=== PATIENT | female | born 1945 | race Caucasian/White ===

== ENCOUNTER 2017-07-08 05:27 | Inpatient (IN) | payer MEDICARE, SELFPAY ==
[2017-06-24 14:16] VITALS: BP 141/69; PULSE 86; RESP 17; TEMP 36.7; O2SAT 97; BMI 30.9
[2017-06-24 15:04] LABS: Absolute Lymphocyte Count 2.72 X10^3/ul (0.83-4.51); Absolute Neutrophil Count 5.9 X10^3/uL (2.0-7.7); Basophil# 0.03 X10^3/uL; Basophil% 0.3 % (0-1); Eosinophil# 0.13 X10^3/uL; Eosinophils% 1.4 % (0-5); Hemoglobin 14.4 g/dl (12.0-15.0); Lymphocyte # 2.72 X10^3/ul (4.0); Lymphocyte % 28.7 % (19-41); Mean Corp Hgb Conc 32.7 g/gl (32-36); Mean Corpuscular Hgb 30.4 pg (27.0-32.0); Mean Corpuscular Volume 92.8 fL (81-99); Mean Platelet Vol. 9.9 fl (6.2-12.0); Monocyte# 0.69 X10^3/uL; Monocyte% 7.3 % (0-10); Neutrophil % 62.2 % (47-70); Platelet Count 235 K/mm3 (150-450); RBC Distribution Width CV 13.6 % (11.6-14.6); RBC Distribution Width SD 46.2 fl (35.1-43.9); Red Blood Count 4.74 M/mm3 (4.2-5.4); White Blood Count 9.5 K/mm3 (4.4-11.0)
[2017-06-24 15:05] LABS: POSITIVE COUNT NO; POSITIVE DIFFERENTIAL NO; POSITIVE MORPHOLOGY NO
[2017-06-24 15:59] LABS: Anion Gap 7 (5-15); BUN 28 mg/dL (7-18); BUN/Creat Ratio 45.1 RATIO (10-20); Calcium,Total 8.8 mg/dL (8.5-10.1); Chloride 108 mmol/L (98-107); Creatinine, Serum 0.62 mg/dL (0.55-1.02); EST Glomerular Filtration Rate 100 mL/min (>60); Est Glom Filt Rate - Afr Amer 121 mL/min (>60); Glucose 88 mg/dL (70-110); Potassium 4.3 mmol/L (3.5-5.1); Sodium Level 140 mmol/L (136-145); Thyroid Stim Hormone (TSH) 0.01 uIU/mL (0.358-3.74)
--- NOTE | 2017-06-25 14:05 | HP.PCM_ITS ---
History and Physical DATE OF SERVICE: 07/08/2017 SCHEDULED PROCEDURE: Right total hip arthroplasty and left total hip arthroplasty HISTORY OF PRESENT ILLNESS: This is a 72-year-old female who is been having ongoing pain in bilateral hips for over 1 year. Patient states the right hip is worse than the left. Pain can reach as high as a 9 out of 10. Pain is constant, aching, and sharp. Pain is increased with going up and down stairs, walking any amount of distance. She has difficult time with activities of daily living including getting dressed , housework, shopping, and leisure activities. Patient states she has fallen as well as tripped and stumbled due to her bilateral hips. Patient has tried conservative measures consisting of rest, ice, heat, elevation with no relief in pain. Patient has had a previous corticosteroid injection into the lateral hip with minimal relief. She has tried oral medications consisting of hydrocodone, ibuprofen, and Mobic. There is been minimal relief. Patient denies previous surgery on bilateral hips. Denies any current chest pain, shortness of breath, fevers chills, or recent infections. We have obtained surgical clearance from patient's primary care physician Dr. Fisher. After failing conservative measures and discussing all treatment options with Dr. Alcantara, the patient would like to proceed with a bilateral total hip arthroplasty. REVIEW OF SYSTEMS: ROS: Const: Reports change in appetite and weight change, but denies anorexia, fever , hard of hearing and vision problems. CV: Denies chest pain, heart murmur, irregular heartbeat and peripheral vascular disease. Resp: Denies asthma, cough, pneumonia, sleep apnea, SOB, tuberculosis and wheezing. GI: Denies constipation, diarrhea, difficulty swallowing, heartburn, nausea, bloody stools and vomiting. : . (F Genital Sx) Urinary: denies incontinence. Musculo: Reports limp, but denies leg swelling, trouble walking and weakness. Skin: Reports history of shingles, but denies Raynaud's and tattoo. Neuro: Denies ambulatory dysfunction, dizziness, numbness/tingling and tremor. Psych: Reports anxiety, depression, insomnia and stress, but denies mental illness. Elliott/Lymph: Denies anemia, bleeding/bruising tendency and past transfusion. Reviewed, no changes. PAST MEDICAL HISTORY: PMH: Medical Problems: Thyroid Disease, Depression Accidents: None Surgical Hx: Tonsillectomy, Hysterectomy Anesthesia Complications: Over Reacted To The Opiates Assistive Devices: Glasses Reviewed, no changes. SOCIAL HISTORY: SH: Marital: .Occupation: Retired.Work Status: Retired.Hand Dominance: Left- handed. Personal Habits: Cigarette Use: Never Smoked Cigarettes.Alcohol: Occasionally.Drug Use: Denies Use.Enjoy Exercising: Exercises 1-3 X/Week. Reviewed, no changes. VITALS: Ht: 66.5 Wt: 195lb Wt k.452 BMI: 31.0 BP: 148/80 Pulse: 76 Resp: 16 T: 97.2 T: 36.2C ALLERGIES: Penicillins Morphine - Over Sensitive MEDICATIONS: Meloxicam 15 mg 1 by mouth every day, Vitamin D3 Ultra Strength 5000 Unit 2 capsules orally daily, Citalopram Hydrobromide 20 mg Take 1 Tablet Every Day, [place] Thyroid 30 mg 3po in the morning and 2 PO I the evening qday, Citalopram Hydrobromide 1 tab PO daily, Multivitamins 1 tab PO daily, Vitamin D3 1000 Unit 1 cap PO daily, Biotin 1 cap PO daily, Vitamin B1 1 tab PO daily, Evening Exline Oil 500 mg 1 cap PO daily, Fish Oil 1 cap PO daily, Cyclobenzaprine HCL 10 mg PRE-OP EXAM: General appearance:NORMAL Other: Eyes: Conjunctivae and lids: NORMAL Pupils: ERR Ears, Nose, Mouth, and Throat: NORMAL Other: Inspection of lips, teeth and gums: NORMAL Other: Neck: Examination of neck: no masses noted. Respiratory: Assessment of respiratory effort: NORMAL Other: Ausculation of lungs: clear to ausculation no wheeses, ronchi or rales. Cardiovascular: Ausculation of heart: regular rate and rhythem, no mummurs, gallops or rubs. Exam of carotid arteries: NORMAL Other: Gastrointestinal: Exam of abdomen: soft, nontender, nondistended bowel sounds present. Lymphatic: Palpation of nodes in neck: NORMAL Other: Palpation of nodes in Axillae: NORMAL Other: Neurological: see below Psychiatric: Orientation to time, place and person: NORMAL Other: Mood and affect: NORMAL Other: PHYSICAL EXAMINATION: Patient walks with an antalgic gait. Right hip has tenderness to palpation over the lateral aspect. Range of motion is 65? of flexion external rotation to 20? and internal rotation to 10? patient has increased pain with rotation in the right groin. Left hip reveals tenderness to palpation of the lateral hip. She has 70? of flexion, internal rotation to 5?, and external rotation to 15?. Pain is really produced with internal and external rotation. Sensations intact light touch IMAGING STUDIES: X-rays were obtained at [facility] [place] on June 24, 2017 which reveals severe osteoarthritis in bilateral hips with joint space narrowing subchondral sclerosis, osteophyte formation. There is severe joint space narrowing. No lytic or blastic lesions. No acute findings for fracture. IMPRESSION: 1. Severe bilateral hip osteoarthritis 2. Thyroid disease 3. Depression PLAN: Dr. Alcantara did discuss and review with the patient all treatment options including surgical versus nonsurgical. Patient wishes to proceed with above- stated procedure. Potential risks, benefits, and complications of this procedure were discussed in detail including but not limited to , infection , nerve and blood vessel damage, persistent pain, numbness, tingling, paresthesias, blood clot, pulmonary embolism, and requirement for further surgery. The patient expressed full understanding has no further questions for the doctor. Patient does agree to proceed with the above-stated procedure and has signed the surgery consent form. ___ I have re-examined the patient. There are no clinical changes since date of exam. ___ See progress notes for changes. ___ Dictated on admission Date: Time: Signature:
[2017-07-08] VITALS (10 sets, daily range): BP systolic 95–138; BP diastolic 44–73; PULSE 73–102; RESP 16–18; TEMP 35.8–36.8; O2SAT 95–100; BMI 30.9; BMI 30.7
[2017-07-08] MEDS: oxyCODONE HCl Cr 10 MG Tablet PO (06:00)
[2017-07-08] MEDS: Celecoxib 200 MG Capsule 400 MG PO (06:01)
[2017-07-08] MEDS: Acetaminophen 500 MG Tablet 1000 MG PO ×3 (06:01→21:38)
[2017-07-08] MEDS: Lactated Ringers 1,000 ML 999 ML IV (06:30)
--- NOTE | 2017-07-08 07:01 | RAD_ITS ---
STUDY: X-RAY - PELVIS AND RIGHT HIP REASON FOR EXAM: Female, 72 years old. Total hip replacement. TECHNIQUE: Radiological exam, hip, unilateral, with pelvis when performed; 2 or 3 views. COMPARISON: None. FINDINGS: Status post right total hip preplacement. There is good alignment. Postoperative soft tissue changes. Status post left total hip replacement. RAD/Hip Min 2 Views (Portable) IMPRESSION: Status post right total hip preplacement. There is good alignment. Status post left total hip replacement. There is good alignment. Electronically Signed: Jamaal Espinoza MD at 11:22 EST Tel [phone], Service support ,
--- NOTE | 2017-07-08 07:01 | RAD_ITS ---
STUDY: X-RAY - PELVIS AND LEFT HIP REASON FOR EXAM: Female, 72 years old. Status post left hip replacement. TECHNIQUE: Radiological exam, hip, unilateral, with pelvis when performed; 2 or 3 views. COMPARISON: None. FINDINGS: The patient is status post left total hip replacement. There is good alignment. Postoperative soft tissue changes. RAD/Hip Min 2 Views (Portable) IMPRESSION: Status post left total hip replacement. Electronically Signed: Jamaal Espinoza MD at 12:23 EST Tel [phone], Service support ,
[2017-07-08] MEDS: Clindamycin 600 MG/50 ML BAG 100 MG IV ×3 (07:17→19:36)
--- NOTE | 2017-07-08 07:42 | RAD_ITS ---
STUDY: X-RAY - PELVIS AND LEFT HIP REASON FOR EXAM: Female, 72 years old. Anterior hip replacement. TECHNIQUE: Radiological exam, hip, unilateral, with pelvis when performed; 2 or 3 views. COMPARISON: None. FINDINGS: Intraoperative fluoroscopic imaging provided for left anterior total hip replacement. RAD/Hip 1 view with Pelvis IMPRESSION: Intraoperative fluoroscopy provided for left anterior hip replacement. Electronically Signed: Jamaal Espinoza MD at 11:00 EST Tel [phone], Service support ,
--- NOTE | 2017-07-08 08:38 | RAD_ITS ---
STUDY: X-RAY - PELVIS AND RIGHT HIP REASON FOR EXAM: Female, 72 years old. Anterior hip replacement. TECHNIQUE: Radiological exam, hip, unilateral, with pelvis when performed; 2 or 3 views. COMPARISON: None. FINDINGS: Fluoroscopic imaging provided for right anterior hip replacement. There is good alignment. RAD/Hip 1 view with Pelvis IMPRESSION: Status post right total hip replacement. There is good alignment. Electronically Signed: Jamaal Espinoza MD at 10:14 EST Tel [phone], Service support ,
[2017-07-08] MEDS: Lactated Ringers 1,000 ML 125 ML IV ×2 (10:33→15:31)
[2017-07-08] MEDS: Scopolamine 1mg/72hr Patch 1 PATCH TD (10:33)
--- NOTE | 2017-07-08 11:55 | OP.PCM_ITS ---
Operative Report Date of Procedure: 07/08/17 Report of Operation Date of Procedure: 07/08/17 Pre-Operative Diagnosis: Bilateral primary hip osteoarthritis Post-Operative Diagnosis: Bilateral primary hip osteoarthritis Surgery/Procedure Performed:: 1. Left total hip replacement, direct anterior. 2. Right total hip replacement, direct anterior Description of Surgical Findings:: Stable hipS with equal leg lengths assistant softball coach: Lexie Miguel Type of Anesthesia:: Spinal Anesthesiologist: Edmond Jones Special Medications: 2 g Ancef, 1 g TXA at incision, 1 g TXA closure, 10 mg Decadron, joint cocktail (30 mL of 0.5% Ropivicaine, 1000 units of epinephrine, 30 mg of Toradol) Specimen's removed: Bony cuts bilaterally Estimated Blood Loss (mL): 200 ML Fluids Replaced: 1800 mL crystalloid Description of Procedure: Components used: Left 1. Accolade 2 Ramirez femoral stem size 7 127? 2. [place] trident acetabular shell size 52 mm 3. [place] X3 polyethylene E 4. Ramirez Biolox delta 36mm, -5mm femoral head Right 1. Accolade 2 Ramirez femoral stem size 6 127? 2. Ramirez trident acetabular shell size 52 mm 3. [place] X3 polyethylene E 4. [place] Biolox delta 36mm, 0mm femoral head Brief history operative indications: 72 yo F who failed conservative measures for their hip osteoarthritis. X-rays were consistent with osteoarthritis including joint space narrowing, osteophyte formation and subchondral cysts. Total hip replacement was discussed with the patient with risks and benefits including but not limited to blood loss, DVTs, PEs, neurovascular damage, dislocation, general risks of anesthesia including loss of life. Patient demonstrated an understanding medical clearance is obtained the patient was consented for surgery. Procedure: On the date of procedure the patient's B hip was marked in the preoperative area. Patient was then taken back to the operating room where anesthesia assumed control of the C-spine and airway and administered anesthetic. Patient was transferred to the operating table and placed in the supine position. The hips were placed at the break of the bed and a sacral bump was placed. The B lower extremity was then prepped out in a sterile fashion using chlorhexidine while the surgeon scrubbed. The PA was vital in the positioning of the patient. Upon reentering the room the B lower extremity was draped in the standard orthopedic fashion and the incision was marked. A timeout was called and everyone agreed upon the side, the site, the procedure be performed, antibody given, and patient's identity. Based on patient's most severe discomfort we elected to start on the left side. At this time incision was made on the left through skin, subcutaneous tissue, and fat down to fascia. The fascia was then incised and the TFL was retracted laterally. A retractor was placed on the lateral border of the femoral neck. Attention was directed to the inferior portion of the approach and all crossing vessels were identified and appropriately coagulated. A retractor was then placed on the medial portion of the femoral neck. The anterior capsule was then cleared of all soft tissue and then H shaped capsulotomy was made. The retractors were then placed inside the capsule. The femoral neck was identified and a cleanup cut was made. At this time a power corkscrew was used to remove the femoral head. Attention was then turned toward the acetabulum where the soft tissues were appropriately retracted and the acetabulum was sequentially reamed to 51 mm. A 52 mm cup was then selected and impacted into place. Acetabular liner was impacted into place and locking mechanism was verified. The position of the acetabular cup was then verified under live fluoroscopy. Attention was then turned to the femur. Soft tissue releases on the medial and lateral femoral neck were appropriately done, the leg was externally rotated and lateralized. A Fuchs retractor was placed medially and proximally to the greater trochanter this allowed appropriate visualization and exposure of the femoral canal. Rongeour was then used to remove excess lateral bone. A canal finder and entry broach were used to open the proximal canal. Once we verified we were down the femoral canal we subsequently broached up to a size 7 femur. The appropriate neck was placed in the previously selected head was trialed with a -5 mm neck. Traction was pulled and the hip was reduced with internal rotation. Once it was appropriately reduced and stability was checked. There was minimal shuck, equal leg lengths and appropriate stability with hyperextension and external rotation as well as with 90? flexion and internal rotation. Fluoroscopy was then also used to verify the position of the components and leg lengths using the contralateral side for comparison. The trial components were then dislocated the proximal femur was again exposed and the components were removed from the wound. The final components were verified and opened. The wound was copiously irrigated out with normal saline. The acetabulum was checked for any residual debris. The final components were placed and impacted. Traction and internal rotation were again used to reduce the hip. After adequate reduction the hip remained stable with appropriate leg lengths. The final components were once again checked with live fluoroscopy and were found to be satisfactory. The wound was then copiously irrigated with normal saline once more, and hemostasis was obtained. Closure was then done using #1 Vicryl runner to close the fascia. A 2-0 vicryl interuppted sutures were used to close the subcutaneous skin. A 3-0 Monocryl and Steri-Strips were used for final skin closure. A Silverlon dressing was placed. While my research study assistant was closing the contralateral side incision was made on the right through skin, subcutaneous tissue, and fat down to fascia. The fascia was then incised and the TFL was retracted laterally. A retractor was placed on the lateral border of the femoral neck. Attention was directed to the inferior portion of the approach and all crossing vessels were identified and appropriately coagulated. A retractor was then placed on the medial portion of the femoral neck. The anterior capsule was then cleared of all soft tissue and then H shaped capsulotomy was made. The retractors were then placed inside the capsule. The femoral neck was identified and a cleanup cut was made. At this time a power corkscrew was used to remove the femoral head. Attention was then turned toward the acetabulum where the soft tissues were appropriately retracted and the acetabulum was sequentially reamed to 51 mm. A 52 mm cup was then selected and impacted into place. Acetabular liner was impacted into place and locking mechanism was verified. The position of the acetabular cup was then verified under live fluoroscopy. Attention was then turned to the femur. Soft tissue releases on the medial and lateral femoral neck were appropriately done, the leg was externally rotated and lateralized. A Fuchs retractor was placed medially and proximally to the greater trochanter this allowed appropriate visualization and exposure of the femoral canal. Rongeour was then used to remove excess lateral bone. A canal finder and entry broach were used to open the proximal canal. Once we verified we were down the femoral canal we subsequently broached up to a size 6 femur. The appropriate neck was placed in the previously selected head was trialed with a 0 mm neck. Traction was pulled and the hip was reduced with internal rotation. Once it was appropriately reduced and stability was checked. There was minimal shuck, equal leg lengths and appropriate stability with hyperextension and external rotation as well as with 90? flexion and internal rotation. Fluoroscopy was then also used to verify the position of the components and leg lengths using the contralateral side for comparison. The trial components were then dislocated the proximal femur was again exposed and the components were removed from the wound. The final components were verified and opened. The wound was copiously irrigated out with normal saline. The acetabulum was checked for any residual debris. The final components were placed and impacted. Traction and internal rotation were again used to reduce the hip. After adequate reduction the hip remained stable with appropriate leg lengths. The final components were once again checked with live fluoroscopy and were found to be satisfactory. The wound was then copiously irrigated with normal saline once more, and hemostasis was obtained. Closure was then done using #1 Vicryl runner to close the fascia. A 2-0 vicryl interuppted sutures were used to close the subcutaneous skin. A 3-0 Monocryl and Steri-Strips were used for final skin closure. A Silverlon dressing was placed. Patient was awakened by anesthesia and transferred to the [facility]. Patient was then transferred to the PACU for recovery. Postoperative plan: Patient will get 24 hours postop antibiotics. Patient will get in-house physical therapy and will be weight-bear as tolerated. Patient will follow up in office in 2 weeks for a wound check and x-rays. Grafts/Implants Used: Ramirez Accolade 2 - Complications none - Admit VTE Documentation VTE Present on Admission: No VTE Mechan Device Prophylaxis: SCD's, Thigh High BANDAR Hose VTE Pharm Prophylaxis ordered?: Yes
[2017-07-08] MEDS: oxyCODONE 5 MG Tablet PO ×2 (12:18→21:39)
[2017-07-08] MEDS: Famotidine 20 MG Tablet PO (13:13)
[2017-07-08] MEDS: Citalopram 20 MG Tablet PO (13:14)
[2017-07-08] MEDS: Aspirin 325 MG Tablet PO (15:28)
[2017-07-08] MEDS: Ferrous Sulfate 325 MG Tablet PO (15:28)
[2017-07-08] MEDS: Folic Acid 1 MG Tablet PO (15:28)
[2017-07-08] MEDS: Ketorolac 15 MG/ML Vial IV (17:20)
[2017-07-08] MEDS: Senna/Docusate Sodium 1 Tablet 2 TABLET PO (21:38)
[2017-07-08] MEDS: Thyroid 60 MG Tablet PO (21:38)
[2017-07-09] MEDS: Clindamycin 600 MG/50 ML BAG 100 MG IV (00:17)
[2017-07-09 03:30] VITALS: BP 108/48; PULSE 88; RESP 18; TEMP 36.6; O2SAT 98
[2017-07-09] MEDS: oxyCODONE 5 MG Tablet PO ×5 (04:03→22:32)
[2017-07-09] MEDS: Acetaminophen 500 MG Tablet 1000 MG PO ×3 (06:09→22:30)
[2017-07-09 06:17] LABS: Hematocrit 33.3 % (37-47); Hemoglobin 10.8 g/dl (12.0-15.0); Mean Corp Hgb Conc 32.4 g/gl (32-36); Mean Corpuscular Hgb 30.4 pg (27.0-32.0); Mean Corpuscular Volume 93.8 fL (81-99); Mean Platelet Vol. 10.5 fl (6.2-12.0); Platelet Count 187 K/mm3 (150-450); RBC Distribution Width CV 13.5 % (11.6-14.6); RBC Distribution Width SD 44.4 fl (35.1-43.9); Red Blood Count 3.55 M/mm3 (4.2-5.4); White Blood Count 10.8 K/mm3 (4.4-11.0)
[2017-07-09 06:18] LABS: Scan Indicated on CBC? Y/N NO
[2017-07-09 06:24] LABS: Anion Gap 7 (5-15); BUN 17 mg/dL (7-18); Calcium,Total 7.9 mg/dL (8.5-10.1); Chloride 107 mmol/L (98-107); Creatinine, Serum 0.55 mg/dL (0.55-1.02); EST Glomerular Filtration Rate 115 mL/min (>60); Est Glom Filt Rate - Afr Amer 139 mL/min (>60); Glucose 119 mg/dL (70-110); Potassium 4.3 mmol/L (3.5-5.1); Sodium Level 141 mmol/L (136-145)
[2017-07-09] MEDS: 0.9% NaCl Peripheral Flush Adult/Peds IV (07:02)
[2017-07-09 07:47] VITALS: BP 108/54; PULSE 77; RESP 18; TEMP 36.8; O2SAT 98
[2017-07-09] MEDS: Folic Acid 1 MG Tablet PO ×2 (08:00→16:04)
[2017-07-09] MEDS: Aspirin 325 MG Tablet PO ×2 (08:00→16:04)
[2017-07-09] MEDS: Famotidine 20 MG Tablet PO (08:00)
[2017-07-09] MEDS: Citalopram 20 MG Tablet PO (08:00)
[2017-07-09] MEDS: Senna/Docusate Sodium 1 Tablet 2 TABLET PO ×2 (08:00→22:29)
[2017-07-09] MEDS: Multivitamins,Therapeutic Tablet 1 TABLET PO (08:00)
[2017-07-09] MEDS: Ferrous Sulfate 325 MG Tablet PO ×2 (08:00→16:04)
--- NOTE | 2017-07-09 10:33 | CASEMGMT ---
REMEDIOS MA Face to Face with patient for initial transition planning/care coordination assessment. REMEDIOS MA introduced self and role at [facility]. Patient lying in bed, alert and oriented. Patient willing to participate in assessment and is able to answer all questions appropriately. Care providers, pharmacy, and demographics verified. See link attached. Patient wishes to discharge home with outpatient therapy at [facility]. Pt states she has no further needs or concerns at this time. REMEDIOS MA called [facility] and requested order for therapy be sent to [facility]. CM to follow for discharge planning needs that may arise. Disposition Plan: Patient to discharge home with outpatient therapy, family support, and follow-up plans in place.
--- NOTE | 2017-07-09 11:35 | PN.ORTHO_ITS ---
Subjective: The patient was sitting in bed upon examination. Patient denies any chest pain , shortness of breath, dizziness, lightheadedness, nausea or vomiting, or calf pain. No adverse overnight events. Patient does complain of some pain in the right hip more than the left hip. She has undergone physical therapy. 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 We have discussed with the patient she is not able to do any transfers or lifting for 6 weeks postoperatively with her . Objective: Vital signs stable and afebrile. Patient is able to plantarflex and dorsiflex actively bilaterally Sensation is intact to light touch to saphenous, sural, superficial and deep peroneal, and tibial distribution bilaterally Bilateral dressings are clean dry and intact. Negative Homans bilaterally, negative signs and symptoms of DVT. - Physical Exam General: Alert, Oriented x3, Cooperative, No apparent distress Vital Signs Temp Pulse Resp BP Pulse Ox 98.2 F 77 18 108/54 L 98 07/09/17 07:47 07/09/17 07:47 07/09/17 07:47 07/09/17 07:47 07/09/17 07:47 Oxygen Delivery Method Room Air Weight: 87.543 kg Body Mass Index (BMI) 30.7 Intake and Output for Last 24 Hours 07/07/17 07/08/17 07/09/17 23:59 23:59 23:59 Intake Total 3512 / 3512 1628 / 1628 Output Total 600 / 600 600 / 600 Balance 2912 / 2912 1028 / 1028 Laboratory Tests Past 24 Hrs 07/09/17 07/09/17 05:36 05:36 WBC 10.8 RBC 3.55 L Hgb 10.8 L Hct 33.3 L MCV 93.8 MCH 30.4 MCHC 32.4 RDW 13.5 RDW Differential 44.4 H Plt Count 187 MPV 10.5 Sodium 141 Potassium 4.3 Chloride 107 Carbon Dioxide 27.0 Anion Gap 7 BUN 17 Creatinine 0.55 Estim Creat Clear Calc 46.20 Est GFR (MDRD) Af Amer 139 Est GFR (MDRD) Non-Af 115 BUN/Creatinine Ratio 31.0 H Glucose 119 H Calcium 7.9 L Assessment/Plan 1. S/P bilateral anterior total hip arthroplasty POD #1 2. Continue Pain Medications: Tylenol and OxyIR 3. DVT Prophylaxis: Aspirin 325 mg twice daily 4. PT/OT: Weightbearing as tolerated 5. H & H: 10.8/33.3, asymptomatic 6. Encouraged Incentive Spirometry 7. Disposition: Plan will be for discharge home tomorrow. I would like patient to get additional physical therapy while in the hospital. 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 Patient is aware we are going to have restrictions for her for the first 6 weeks with no transfers or lifting of her . She voiced understanding and agreement.
[2017-07-09 13:53] VITALS: BP 105/52; PULSE 75; RESP 18; TEMP 37.1; O2SAT 98
[2017-07-09 20:20] VITALS: BP 106/61; PULSE 79; RESP 18; TEMP 36.9; O2SAT 97
[2017-07-09] MEDS: Thyroid 60 MG Tablet PO (22:29)
[2017-07-10] VITALS (7 sets, daily range): BP systolic 91–128; BP diastolic 35–80; PULSE 75–91; RESP 16; TEMP 36.7–37.1; O2SAT 97–99
[2017-07-10] MEDS: Acetaminophen 500 MG Tablet 1000 MG PO (05:21)
[2017-07-10 07:10] LABS: Hematocrit 35.9 % (37-47); Hemoglobin 11.8 g/dl (12.0-15.0); Mean Corp Hgb Conc 32.9 g/gl (32-36); Mean Corpuscular Hgb 30.8 pg (27.0-32.0); Mean Corpuscular Volume 93.7 fL (81-99); Mean Platelet Vol. 10.7 fl (6.2-12.0); Platelet Count 210 K/mm3 (150-450); RBC Distribution Width CV 13.7 % (11.6-14.6); RBC Distribution Width SD 45.6 fl (35.1-43.9); Red Blood Count 3.83 M/mm3 (4.2-5.4); White Blood Count 10.4 K/mm3 (4.4-11.0)
--- NOTE | 2017-07-10 07:20 | PN.ORTHO_ITS ---
Subjective: The patient was sitting in bedside chair upon examination. Patient denies any chest pain, shortness of breath, lightheadedness, nausea or vomiting, or calf pain. Patient is complaining of dizziness when up moving. Her blood pressure has been low. Patient denies any chest pain or any previous cardiac history, she has no history of hypertension. Patient states she has had a history in the past of dizziness and almost passing out. Patient's chief complaint is thigh pain. No adverse overnight events. Case was discussed with Dr. Alcantara. Objective: Vital signs stable except patient has hypotension and afebrile. Patient is able to plantarflex and dorsiflex actively. Sensation is intact to light touch to saphenous, sural, superficial and deep peroneal, and tibial distribution. Dressing is clean dry and intact. Bilateral thighs are soft and supple, no ecchymosis. Negative Homans bilaterally, negative signs and symptoms of DVT. - Physical Exam General: Alert, Oriented x3, Cooperative, No apparent distress Vital Signs Temp Pulse Resp BP Pulse Ox 98.1 F 75 16 91/35 L 97 07/10/17 02:30 07/10/17 02:30 07/10/17 02:30 07/10/17 06:22 07/10/17 02:30 Oxygen Delivery Method Room Air Weight: 87.543 kg Body Mass Index (BMI) 30.7 Intake and Output for Last 24 Hours 07/08/1718 07/10/17 23:59 23:59 23:59 Intake Total 3512 / 3512 2028 / 2028 600 / 600 Output Total 600 / 600 600 / 600 Balance 2912 / 2912 1428 / 1428 600 / 600 Laboratory Tests Past 24 Hrs 07/10/17 06:18 WBC Pending RBC Pending Hgb Pending Hct Pending MCV Pending MCH Pending MCHC Pending RDW Pending RDW Differential Pending Plt Count Pending Assessment/Plan 1. S/P bilateral anterior total hip arthroplasty POD #2 2. Continue Pain Medications: Tylenol and OxyIR, minimize the use of narcotics at this time. 3. DVT Prophylaxis: Aspirin 325 mg twice daily 4. PT/OT: Weightbearing as tolerated 5. H & H: Currently 11.8/35.9 trending up, patient with dizziness when moving. 6. Encouraged Incentive Spirometry 7. Hypotension: Case was discussed with Dr. Hunter Alcantara, plan will be for 1 L bolus of LR. We will continue to monitor her blood pressure. Minimize use of oxycodone. We will also check blood glucose. 8. Disposition: Discussed with Dr. Alcantara, plan will be for possible discharge home this evening if patient's hypotension improves and is asymptomatic. We will minimize the use of narcotics at this time. Continue with Tylenol for pain control. Prescriptions will be attached to the chart. Patient will follow -up per postop instructions. If patient remains symptomatic we will keep her another night.
--- NOTE | 2017-07-10 07:28 | PCM.DC.THR ---
Discharge Diet: No Restrictions Discharge Activity: May Not Drive - while taking narcotic pain medications. May shower in (days): 1 - Turned dressing away from water Weight Bearing Status: Weight bearing as tolerated - With walker Additional Activity Instructions:: Wear elastic stockings for 2 weeks. DO NOT use alcohol with narcotic pain medication. DO NOT make important decisions while taking narcotic medication. If you have problems with taking your medication (rash, itching, nausea, etc.) call the office at once. Call your doctor if your incision/area has: Increased Pain/ Swelling, Increased Redness, Foul Smelling Discharge Call your doctor if you observe: Fever of 101 or Higher Remove Dressing in (days):: 3 - Okay to remove on July 13, 2017 Instructions: Hip Safety: Getting Into and Out of Bed, Hip Precautions, Hip Safety: Sitting, Total Hip Replacement, Understanding Hip Replacement, After Total Hip Replacement: Returning to Activity, After Hip Replacement: Home Safety, After Total Hip Replacement: Recovering at Home, Discharge Instructions for Total Hip Replacement Surgery, After Hip Replacement: Managing Your Pain, After Hip Replacement: Using Your Walker, After Hip Replacement: Your Exercise Program Chart Additional Instructions: Follow [facility] postop instructions Avoid herbals, supplements, vitamins for first 2 weeks postoperatively. May resume after 2 weeks. Allergies/Adverse Reactions: Allergies morphine Allergy (Verified 06/24/17 14:08) Other Penicillins [PCN] Allergy (Verified 06/24/17 14:08) Swelling Medications to take at Discharge Biotin 1 mg PO DAILY 06/24/17 Cholecalciferol (Vitamin D3) [Vitamin D3] 5,000 unit PO DAILY 06/24/17 Citalopram [Celexa] 20 mg PO DAILY 06/24/17 Cyclobenzaprine [Flexeril] 10 mg PO QHS 06/24/17 Evening [place] Oil 500 mg PO DAILY 06/24/17 Multivitamin [Multiple Vitamins] 1 each PO DAILY 06/24/17 Thyroid,Pork [[employer] Thyroid] 2 tab PO QHS 06/24/17 Thyroid,Pork [[employer] Thyroid] 3 tab PO DAILY 06/24/17 Acetaminophen [Tylenol] 1,000 mg PO Q8 #90 tab 07/10/17 Aspirin 325 mg PO BIDCM #30 tab 07/10/17 Famotidine [Pepcid] 20 mg PO DAILY #30 tab 07/10/17 Oxycodone [Oxyir] 5 mg PO Q6H PRN PRN 7 Days #56 tab 07/10/17 Senna/Docusate Sodium [Senokot-S] 2 tab PO BID #20 tab 07/10/17 The following prescriptions were given: Oxycodone [Oxyir] 5 mg PO Q6H PRN PRN 7 Days #56 tab PRN Reason: Mod-Severe Pain (-03/17) Acetaminophen [Tylenol] 1,000 mg PO Q8 #90 tab Famotidine [Pepcid] 20 mg PO DAILY #30 tab Aspirin 325 mg PO BIDCM #30 tab Senna/Docusate Sodium [Senokot-S] 2 tab PO BID #20 tab Primary Care Physician: Daquan Fisher DO [Primary Care Provider] - Please follow up with your Primary Care Physician in: schedule follow up with PCP 1 week Please Follow Up With: home health physical therapy Please Follow Up With: Hemal Mayorga PA-C When: 07/22/17 @ 10:00 am
--- NOTE | 2017-07-10 07:31 | DCINST_ITS ---
Discharge Diet: No Restrictions Discharge Activity: May Not Drive - while taking narcotic pain medications. May shower in (days): 1 - Turned dressing away from water Weight Bearing Status: Weight bearing as tolerated - With walker Additional Activity Instructions:: Wear elastic stockings for 2 weeks. DO NOT use alcohol with narcotic pain medication. DO NOT make important decisions while taking narcotic medication. If you have problems with taking your medication (rash, itching, nausea, etc.) call the office at once. Call your doctor if your incision/area has: Increased Pain/ Swelling, Increased Redness, Foul Smelling Discharge Call your doctor if you observe: Fever of 101 or Higher Remove Dressing in (days):: 3 - Okay to remove on July 13, 2017 Instructions: Hip Safety: Getting Into and Out of Bed, Hip Precautions, Hip Safety: Sitting, Total Hip Replacement, Understanding Hip Replacement, After Total Hip Replacement: Returning to Activity, After Hip Replacement: Home Safety , After Total Hip Replacement: Recovering at Home, Discharge Instructions for Total Hip Replacement Surgery, After Hip Replacement: Managing Your Pain, After Hip Replacement: Using Your Walker, After Hip Replacement: Your Exercise Program Chart Additional Instructions: Follow [facility] postop instructions Avoid herbals, supplements, vitamins for first 2 weeks postoperatively. May resume after 2 weeks. Allergies/Adverse Reactions: Allergies morphine Allergy (Verified 06/24/17 14:08) Other Penicillins [PCN] Allergy (Verified 06/24/17 14:08) Swelling Medications to take at Discharge Biotin 1 mg PO DAILY 06/24/17 Cholecalciferol (Vitamin D3) [Vitamin D3] 5,000 unit PO DAILY 06/24/17 Citalopram [Celexa] 20 mg PO DAILY 06/24/17 Cyclobenzaprine [Flexeril] 10 mg PO QHS 06/24/17 Evening [place] Oil 500 mg PO DAILY 06/24/17 Multivitamin [Multiple Vitamins] 1 each PO DAILY 06/24/17 Thyroid,Pork [[place] Thyroid] 2 tab PO QHS 06/24/17 Thyroid,Pork [[place] Thyroid] 3 tab PO DAILY 06/24/17 Acetaminophen [Tylenol] 1,000 mg PO Q8 #90 tab 07/10/17 Aspirin 325 mg PO BIDCM #30 tab 07/10/17 Famotidine [Pepcid] 20 mg PO DAILY #30 tab 07/10/17 Oxycodone [Oxyir] 5 mg PO Q6H PRN PRN 7 Days #56 tab 07/10/17 Senna/Docusate Sodium [Senokot-S] 2 tab PO BID #20 tab 07/10/17 The following prescriptions were given: Oxycodone [Oxyir] 5 mg PO Q6H PRN PRN 7 Days #56 tab PRN Reason: Mod-Severe Pain (-03/17) Acetaminophen [Tylenol] 1,000 mg PO Q8 #90 tab Famotidine [Pepcid] 20 mg PO DAILY #30 tab Aspirin 325 mg PO BIDCM #30 tab Senna/Docusate Sodium [Senokot-S] 2 tab PO BID #20 tab Primary Care Physician: Daquan Fisher DO [Primary Care Provider] - Please follow up with your Primary Care Physician in: schedule follow up with PCP 1 week Please Follow Up With: home health physical therapy Please Follow Up With: Hemal Mayorga PA-C When: 07/22/17 @ 10:00 am
[2017-07-10] MEDS: Ferrous Sulfate 325 MG Tablet PO (07:32)
[2017-07-10] MEDS: Aspirin 325 MG Tablet PO (07:32)
[2017-07-10 07:33] LABS: Scan Indicated on CBC? Y/N NO
[2017-07-10] MEDS: Multivitamins,Therapeutic Tablet 1 TABLET PO (07:33)
[2017-07-10] MEDS: Citalopram 20 MG Tablet PO (07:33)
[2017-07-10] MEDS: Senna/Docusate Sodium 1 Tablet 2 TABLET PO (07:33)
[2017-07-10] MEDS: Famotidine 20 MG Tablet PO (07:33)
[2017-07-10] MEDS: Folic Acid 1 MG Tablet PO (07:33)
[2017-07-10] MEDS: Lactated Ringers 1,000 ML 500 ML IV (07:43)
[2017-07-10 07:46] LABS: Bedside Glucose 137 mg/dL (70-110)
[2017-07-10] MEDS: oxyCODONE 5 MG Tablet PO (11:26)
== END 2017-07-10 15:00 | disposition home or self-care (01) | DRG 462 ==
LOC: ACINP 05:28 → MS3 08:44
PROVIDERS: Anesthesiology; Admitting Provider Specialist; Family Provider Family Medicine; PCP Family Medicine; Visit Provider Specialist
PROC: 0SRB04A Replacement of Left Hip Joint with Ceramic on Polyethylene Synthetic Substitute, Uncemented, Open Approach (ICD-10-PCS; CPT 27284; principal; 2017-07-08 06:50)
DX: M16.0 Bilateral primary osteoarthritis of hip (principal); I95.9 Hypotension, unspecified; Z23 Encounter for immunization; E07.9 Disorder of thyroid, unspecified; F32.9 Major depressive disorder, single episode, unspecified
CPT/HCPCS: 36415; 73501; 73502; 76000; 80048; 82962; 84443; 85025; 85027; 87081; 97110; 97116; 97162; 97165; 97530; 97535; 99251; J7120; 90686; A4216; G0463

== ENCOUNTER 2017-08-07 10:00 | Outpatient (RCR) | payer MEDICARE, SELFPAY ==
[2017-07-10 10:19] VITALS: BP 117/56
[2017-07-10 11:29] VITALS: BP 128/55
[2017-07-10 11:30] VITALS: BP 101/49; BP 128/55; BP 128/70
--- NOTE | 2017-07-17 12:02 | HP.PTEVAL_ITS ---
Patient's Visit Information ANAI Ocampo OHL is a 72 year old F referred to Physical Therapy by MD RIMA Messer with a diagnosis of Bilateral THR. Date of Evaluation: 07/17/17 Physical Therapist: Callie Barrera - Visit Plan Frequency: 3x /Week Duration: 3 Weeks Plan: Bilateral THR 07/08/17. Focus on LE strength and functional mobility. - Subjective Subjective: Bilateral Hip Replacement 07/08/[address] Alcantara- stayed an extra day due to blood pressure issues. Came straight home- lives on single story home- one little step to get in without any issues. Fully I before surgery. Caregiver for . Bone on bone in both hips and was very painful. When she sits and lays down she has no pain. Worst: 7/10 when she gets up in the AM. Sleep: disturbed- sleeps in a reclyner. Was told not to roll over onto her hips. Goes back to [facility] on Jul 22, 2017. Pain is now in the hips itself- No radiating pain. No N/T in the LE. Anterior approach both ways. PMHx/Meds: no change since leaving the hospital. Is still taking the pain medication. - Objective Posture: FH, RS. Gait: slightly antalgic- isaura is slow- ambulate into clinic with rollator but was able to ambulate safely with no AD or at the least a cane. Stairs: asc/desc 8 recip with 2 HR. HR/TR: able. Balance: 5 sec each LE without UE A. ROM: WFL. Strength: Ankle: 5/5, Knee: 5/5, Hip left- 4-/ 5 and right- 4/5 - Goals Goal 1:: Patient will be I with HEP and progression Goal Time Frame: 4-6 Weeks Goal 2:: Patient will ambulate >300 feet with a normalized gait pattern and LRD Goal Time Frame: 4-6 Weeks Goal 3:: Patient will demo 4+/5 strength in LE where deficit to ease ADL's. Goal Time Frame: 4-6 Weeks - Rehabilitation Potential Physical Therapy Diagnosis: Patient presents with hypomobility- she is s/p bilateral THR- she has decreased strength and functional mobility. Rehabilitation Potential: Fair - Anticipated Interventions Patient/Client Instruction: Educate patient on: Benefits of Fitness Program For the Purpose of:: To improve performance and independence with ADL's Therapeutic Exercise to Include: Strength training, Endurance training, Coordination, Body mechanics, Postural training, Flexibilty training, Dynamic Lumbar Stabilization For the Purpose of:: To improve muscle performance and motor function TENS: Yes Cryotherapy (ice pack, ice massage): Yes Thermo therapy (hot pack): Yes Ultrasound (thermal/non thermal): No For the Purpose of:: To decrease pain Thank you for the opportunity to evaluate your patient. For Medicare and Medicare HMO plans, please review the plan of care and approve it. It will need to be FAXED BACK to us at [phone] for Medicare purposes. Please let me know if there are questions or concerns regarding this plan of care. Physician Signature: Date:
--- NOTE | 2017-08-07 10:41 | HP.PTDCSUM_ITS ---
HP - PT D/C Summary It has been my pleasure to treat ANAI Ocampo OHL under orders from Dick Alcantara MD , for the diagnosis of Bilateral THR for a total of 5 visit(s). Discharge Date: Please see the following information for a summary of their discharge status. - Subjective Subjective: Patient reports that she pays for PT the next day- Thinks that she may have shingles and the MD put her on meds and thats why she has missed a few appts. She has significant muscle soreness but can relieve it by foam rolling. Goes back to MD on the . Uses the cane due to feeling more stable and less limping. No pain except for muscle soreness. Slept in bed all night last night. - Pain Bilateral Hip Pain Intensity (Out of 10): 0 Right Knee Pain Intensity (Out of 10): 3 - Objective Objective/Function: Posture: good. Gait: no deviation with straight cane. Stairs:asc/desc 8 stairs recip. ROM: WFL. Strength: 5/5 throughout. SLS: 10 sec then UE A - Goals Goal 1:: Patient will be I with HEP and progression Goal Progress: Goal Met Goal 2:: Patient will ambulate >300 feet with a normalized gait pattern and LRD Goal Progress: Goal Met Goal 3:: Patient will demo 4+/5 strength in LE where deficit to ease ADL's. Goal Progress: Goal Met - Plan Plan: Discharge- pt feels confident to continue with normal ADL's and HEP - D/C Information If there are questions or concerns regarding this patient's physical therapy, please feel free to call me at [phone]. Thank you for the referral of this patient. Sincerely, Callie Barrera
== END 2017-08-07 19:00 | disposition home or self-care (01) ==
LOC: PT 10:00
PROVIDERS: Family Provider Family Medicine; PCP Family Medicine; Visit Provider Specialist
DX: Z96.643 Presence of artificial hip joint, bilateral (principal); Z47.1 Aftercare following joint replacement surgery
CPT/HCPCS: 97110; 97161; 97530

== ENCOUNTER → 2017-11-03 14:09 | Outpatient (CLI) | payer MEDICARE, SELFPAY ==
--- NOTE | 2017-11-03 13:32 | LES_PTH ---
PATIENT: ANAI KING LOC: [facility] U#:[id number] AGE/SX: 79/F ROOM: RE11/03/[address]: Dr. Daquan Fisher, : 1945 BED: DIS: SPEC #: [id number] RECD: 11/03/17 15:34 STATUS: PAUL NATALEE #: [id number] JOSS: 11/03/17 13:[address]: Daquan Fisher DEPT: SURGICAL PATHOLOGY RECD BY: Deven Méndez Tissues: A - Skin of upper extremity and shoulder B - Skin of buttock, NOS Procedures: Special Stain Group I Surgery Specimen Level IV GMS Stain (control) HEADER OPERATION: Punch biopsy x3, cryotherapy PRE-OP DIAGNOSIS: Atypical lesion TISSUE SUBMITTED: A ? Left shoulder, B ? Right buttock MICROSCOPIC DIAGNOSIS A. Left shoulder, punch biopsy: Skin with underlying tissue with focal ulceration and reactive changes. Dermal perivascular chronic inflammation. Negative for malignancy. Special stain for fungi is negative for organisms; matched control is appropriate. B. Right buttock lesion, biopsy: Skin with underlying tissue with hyperkeratosis, vascular ectasia and dermal chronic inflammation. Negative for malignancy. ADITHYA:karen 11/05/17 MICROSCOPIC DESCRIPTION Slides are reviewed. GROSS DESCRIPTION A - Received in fixative is one container labeled with the patient's name and designated left shoulder. The specimen consists of a punch biopsy of rizvi-brown skin measuring 0.2 cm in diameter and 0.2 cm in length. The specimen is totally submitted in one cassette. B - Received in fixative is one container labeled with the patient's name and designated right buttock. The specimen consists of a punch biopsy of rizvi-white to brown skin measuring 0.3 cm in diameter and 0.3 cm in length. The specimen is totally submitted in one cassette. / ADITHYA:akren 11/04/17 TC:3 CPT: 18854 x2, [id number]
== END ==
PROVIDERS: Family Provider Family Medicine; PCP Family Medicine; Visit Provider Family Medicine
DX: L98.9 Disorder of the skin and subcutaneous tissue, unspecified (principal)
CPT/HCPCS: 88305; 88312

== ENCOUNTER → 2019-12-22 12:02 | Outpatient (CLI) | payer MEDICARE, SELFPAY ==
--- NOTE | 2019-12-22 12:04 | BI_ITS ---
MAMMOGRAPHY - BILATERAL SCREENING REASON FOR EXAM: Female, 74 years old. Routine annual screening examination. PERTINENT HISTORY: Daughter with breast cancer. TECHNIQUE: Digital bilateral breast earl (3D mammographic acquisition) in the CC and MLO projections. 2-D mediolateral oblique (MLO) and craniocaudad (CC) views of both breasts were obtained. CAD: Full Field Digital Mammography with Computer Added Detection was performed. COMPARISON: Comparison is made with prior study dated March 24, 2017 and November 18, 2013. FINDINGS: Breast Composition: There are scattered areas of fibroglandular density. There are no dominant masses or suspicious calcifications. Stable small benign appearing bilateral axillary lymph nodes. No other significant abnormalities are identified. There has been no significant change since the prior study. BI/SCREEN MAMM (CAD) W/EARL BILAT IMPRESSION: Stable bilateral screening mammogram. Yearly follow-up mammogram recommended. (A) ASSESSMENT CATEGORY: BIRADS Category 2: Benign. A letter regarding these results will be sent to the patient by the facility within 30 days. Approximately 10% of breast cancers are not detected by mammography. A normal mammogram should not delay biopsy of a clinically suspicious abnormality. [id number] Electronically Signed: Jamaal Espinoza, at 13:15 EDT , Service support ,
== END ==
PROVIDERS: PCP Family Medicine; Referring Provider Family Medicine; Visit Provider Family Medicine
DX: Z12.31 Encounter for screening mammogram for malignant neoplasm of breast (principal); Z80.3 Family history of malignant neoplasm of breast
CPT/HCPCS: 77063; 77067

== ENCOUNTER → 2020-04-20 08:32 | Outpatient (CLI) | payer MEDICARE, SELFPAY ==
[2020-04-20 12:55] LABS: Absolute Lymphocyte Count 2.23 X10^3/uL (0.83-4.51); Absolute Neutrophil Count 3.6 X10^3/uL (2.0-7.7); Basophil# 0.04 X10^3/uL; Basophil% 0.6 % (0-1); Eosinophil# 0.14 X10^3/uL; Eosinophils% 2.1 % (0-5); Hematocrit 47.7 % (37-47); Hemoglobin 15.4 g/dL (12.0-15.0); Lymphocyte # 2.23 X10^3/ul (4.0); Lymphocyte % 33.8 % (19-41); Mean Corp Hgb Conc 32.3 g/dL (32-36); Mean Corpuscular Hgb 30.4 pg (27.0-32.0); Mean Corpuscular Volume 94.3 fL (81-99); Monocyte# 0.55 X10^3/uL; Monocyte% 8.3 % (0-10); NRBC Flagged by Analyzer 0 % (0-5); Neutrophil # 3.61 X10^3/uL (2.7-7.7); Neutrophil % 54.9 % (47-70); Platelet Count 272 K/mm3 (150-450); RBC Distribution Width CV 13.6 % (11.6-14.6); RBC Distribution Width SD 47.3 fl (35.1-43.9); Red Blood Count 5.06 M/mm3 (4.2-5.4); White Blood Count 6.6 K/mm3 (4.4-11.0)
[2020-04-20 13:21] LABS: T4 Free Direct 0.75 ng/dL (0.76-1.46); Thyroid Stim Hormone (TSH) 1.38 uIU/mL (0.358-3.74)
== END ==
PROVIDERS: PCP Family Medicine; Visit Provider Family Medicine
DX: E03.9 Hypothyroidism, unspecified (principal); R23.2 Flushing
CPT/HCPCS: 36415; 84439; 84443; 85025

== ENCOUNTER → 2022-04-01 | Outpatient (CLI) | payer MEDICARE, SELFPAY ==
--- NOTE | 2022-04-01 08:43 | AAVD_ITS ---
Reason For Study: Sscreening Aorta Measurements Aorta Doppler Measurements Proximal aorta measures2.0 X 1.96cm. in cross- Peak systolic flow velocities within the proximal sectional axis. aorta measure 95.9 cm/sec. Proximal aorta measures1.96cm. in longitudinal Peak systolic flow velocities within the mid aorta axis. measure 101.3 cm/sec. Mid aorta measures1.49 X 1.56cm. in cross- Peak systolic flow velocities within the distal sectional axis. aorta measure 94.2 cm/sec. Mid aorta measures1.49cm. in longitudinal axis. Distal aorta measures1.36 X 1.64cm. in cross- sectional axis. Distal aorta measures1.42cm. in longitudinal axis. Left Iliac Artery Left iliac artery measures 1.13 X 1.02 cm. in the cross-sectional axis. Left iliac artery measures 1.04 cm. in the longitudinal axis. Peak systolic velocity in the left iliac artery measures 157.8 cm/sec. Right Iliac Artery Right iliac artery measures 1.03 X 1.08 cm. in the cross-sectional axis. Right iliac artery measures 1.04 cm. in the longitudinal axis. Peak systolic velocity in the right iliac artery measures 113.9 cm/sec. Procedure Aorta IVC Iliac vasculature or bypass grafts 51089. The exam was diagnostic. Exam performed in department. VL/Abd Aortic/IVC Duplex scan Interpretation Summary The dimensions of the intra-abdominal aorta are normal, without evidence of ane urysmal dilatation. The iliac arteries also appear normal in caliber bilaterally. The intra-abdomin al aorta and iliac arteries appear patent segmentally, demonstrating normal pulsatile arterial aidan w at all levels. Ordering Physician: Daquan Fisher Performed By: Blake Ralph RVT
--- NOTE | 2022-04-01 09:30 | BI_ITS ---
MAMMOGRAPHY - BILATERAL SCREENING REASON FOR EXAM: Female, 76 years old. Routine annual screening examination. PERTINENT HISTORY: Daughter with breast cancer. TECHNIQUE: Digital bilateral breast earl (3D mammographic acquisition) in the CC and MLO projections. 2-D mediolateral oblique (MLO) and craniocaudad (CC) views of both breasts were obtained. CAD: Full Field Digital Mammography with Computer Added Detection was performed. COMPARISON: Comparison is made with prior study dated 12/22/2019 and 03/24/2017. FINDINGS: Breast Composition: The breasts are heterogeneously dense, which may obscure small masses. There are no dominant masses or suspicious calcifications. Stable small benign-appearing bilateral axillary lymph nodes. No other significant abnormalities are identified. There has been no significant change since the prior study. BI/SCRN MAMM (CAD)W/EARL BILAT IMPRESSION: Stable bilateral screening mammogram. Yearly follow-up mammogram recommended. (A) ASSESSMENT CATEGORY: BIRADS Category 2: Benign. A letter regarding these results will be sent to the patient by the facility within 30 days. Approximately 10% of breast cancers are not detected by mammography. A normal mammogram should not delay biopsy of a clinically suspicious abnormality. [id number] Electronically Signed: Jamaal Espinoza MD at 10:32 EDT ,
== END | disposition home or self-care (01) ==
LOC: CVS 08:34
PROVIDERS: PCP Family Medicine; Referring Provider Family Medicine; Visit Provider Family Medicine
DX: Z13.6 Encounter for screening for cardiovascular disorders (principal); Z87.891 Personal history of nicotine dependence; Z12.31 Encounter for screening mammogram for malignant neoplasm of breast; Z80.3 Family history of malignant neoplasm of breast; Z82.49 Family history of ischemic heart disease and other diseases of the circulatory system
CPT/HCPCS: 77063; 77067; 93978

== ENCOUNTER → 2023-05-15 | Outpatient (CLI) | payer MEDICARE, SELFPAY ==
--- NOTE | 2023-05-15 13:29 | BI_ITS ---
MAMMOGRAPHY - BILATERAL SCREENING REASON FOR EXAM: Female, 77 years old. Routine annual screening examination. PERTINENT HISTORY: Daughter with breast cancer. TECHNIQUE: Digital bilateral breast earl (3D mammographic acquisition) in the CC and MLO projections. 2-D mediolateral oblique (MLO) and craniocaudad (CC) views of both breasts were obtained. CAD: Full Field Digital Mammography with Computer Added Detection was performed. COMPARISON: Comparison is made with prior study April 01, 2022 and December 22, 2019. FINDINGS: Breast Composition: The breasts are heterogeneously dense, which may obscure small masses. There are no dominant masses or suspicious calcifications. No other significant abnormalities are identified. There has been no significant change since the prior study. BI/SCRN MAMM (CAD)W/EARL BILAT IMPRESSION: Stable bilateral screening mammogram. Yearly follow-up mammogram recommended. (A) ASSESSMENT CATEGORY: BIRADS Category 1: Negative. A letter regarding these results will be sent to the patient by the facility within 30 days. Approximately 10% of breast cancers are not detected by mammography. A normal mammogram should not delay biopsy of a clinically suspicious abnormality. [id number] Electronically Signed: Jamaal Espinoza MD at 14:33 EST ,
== END | disposition home or self-care (01) ==
LOC: OPBI 13:26
PROVIDERS: PCP Family Medicine; Referring Provider Family Medicine; Visit Provider Family Medicine
DX: Z12.31 Encounter for screening mammogram for malignant neoplasm of breast (principal)
CPT/HCPCS: 77063; 77067

== ENCOUNTER → 2023-06-19 | Outpatient (CLI) | payer MEDICARE, SELFPAY ==
[2023-06-19 17:36] LABS: Absolute Lymphocyte Count 4.11 X10^3/uL (0.83-4.51); Absolute Neutrophil Count 3.8 X10^3/uL (2.0-7.7); Basophil# 0.05 X10^3/uL; Basophil% 0.6 % (0-1); Eosinophils% 2.2 % (0-5); Hematocrit 43.5 % (37-47); Hemoglobin 14.4 g/dL (12.0-15.0); Lymphocyte # 4.11 X10^3/ul (0.83-4.51); Mean Corp Hgb Conc 33.1 g/dL (32-36); Mean Corpuscular Hgb 30.6 pg (27.0-32.0); Mean Corpuscular Volume 92.4 fL (81-99); Mean Platelet Vol. 10.5 fl (6.2-12.0); Monocyte# 0.72 X10^3/uL; Monocyte% 8.1 % (0-10); NRBC Flagged by Analyzer 0 % (0-5); Neutrophil # 3.83 X10^3/uL (2.7-7.7); Neutrophil % 42.9 % (47-70); Platelet Count 239 K/mm3 (150-450); RBC Distribution Width CV 13.9 % (11.6-14.6); RBC Distribution Width SD 47.4 fl (35.1-43.9); Red Blood Count 4.71 M/mm3 (4.2-5.4); White Blood Count 8.9 K/mm3 (4.4-11.0)
[2023-06-19 18:22] LABS: AST(SGOT) 26 U/L (15-37); Alanine Aminotransfer ALT/SGPT 31 U/L (13-56); Albumin, Serum 3.6 g/dL (3.2-5.0); Alkaline Phosphatase 84 U/L (45-117); Anion Gap 6 (5-15); BUN 34 mg/dL (7-18); Calcium,Total 8.7 mg/dL (8.5-10.1); Chloride 108 mmol/L (98-107); Cholesterol 235 mg/dL (200); Creatinine, Serum 0.74 mg/dL (0.55-1.02); EST Glomerular Filtration Rate 80 mL/min (>60); Est Glom Filt Rate - Afr Amer 97 mL/min (>60); Globulin 3.7 g/dL (2.2-4.2); Glucose 96 mg/dL (74-106); High Density Lipoprotein 96 mg/dL; Potassium 4.3 mmol/L (3.5-5.1); Protein, Total 7.3 g/dL (6.4-8.2); Sodium Level 139 mmol/L (136-145); T4 Free Direct 0.67 ng/dL (0.76-1.46); Thyroid Stim Hormone (TSH) 1.54 uIU/mL (0.358-3.74); Triglycerides 113 mg/dL; Very Low Density Lipoprotein 23 mg/dL (5-40)
== END | disposition home or self-care (01) ==
LOC: BFHLAB 15:24
PROVIDERS: PCP Family Medicine; Visit Provider Family Medicine
DX: R05.9 Cough, unspecified (principal); R03.0 Elevated blood-pressure reading, without diagnosis of hypertension; E03.9 Hypothyroidism, unspecified; E78.5 Hyperlipidemia, unspecified
CPT/HCPCS: 36415; 80053; 80061; 84439; 84443; 85025

== ENCOUNTER → 2024-06-21 | Outpatient (CLI) | payer MEDICARE, SELFPAY ==
[2024-06-21 12:15] LABS: Absolute Lymphocyte Count 2.97 X10^3/uL (0.83-4.51); Absolute Neutrophil Count 3.3 X10^3/uL (2.0-7.7); Basophil# 0.06 X10^3/uL; Basophil% 0.8 % (0-1); Eosinophils% 1.4 % (0-5); Hematocrit 46.9 % (37-47); Hemoglobin 15.3 g/dL (12.0-15.0); Lymphocyte # 2.97 X10^3/ul (0.83-4.51); Mean Corp Hgb Conc 32.6 g/dL (32-36); Mean Corpuscular Hgb 30.2 pg (27.0-32.0); Mean Corpuscular Volume 92.5 fL (81-99); Mean Platelet Vol. 9.9 fl (6.2-12.0); Monocyte# 0.62 X10^3/uL; Monocyte% 8.8 % (0-10); NRBC Flagged by Analyzer 0 % (0-5); Neutrophil # 3.31 X10^3/uL (2.7-7.7); Neutrophil % 46.9 % (47-70); Platelet Count 192 K/mm3 (150-450); RBC Distribution Width SD 43.9 fl (35.1-43.9); Red Blood Count 5.07 M/mm3 (4.2-5.4); White Blood Count 7.1 K/mm3 (4.4-11.0)
[2024-06-21 12:52] LABS: ALB/GLOB Ratio 0.9 RATIO (0.9-2.4); AST(SGOT) 21 U/L (15-37); Alanine Aminotransfer ALT/SGPT 26 U/L (13-56); Albumin, Serum 3.5 g/dL (3.2-5.0); Alkaline Phosphatase 84 U/L (45-117); Anion Gap 5 (5-15); BUN 31 mg/dL (7-18); BUN/Creat Ratio 38.1 RATIO (10-20); Calcium,Total 9.3 mg/dL (8.5-10.1); Chloride 108 mmol/L (98-107); Cholesterol 235 mg/dL (200); Creatinine, Serum 0.81 mg/dL (0.55-1.02); EST Glomerular Filtration Rate 72 mL/min (>60); Est Glom Filt Rate - Afr Amer 87 mL/min (>60); Globulin 4.1 g/dL (2.2-4.2); Glucose 99 mg/dL (74-106); High Density Lipoprotein 92 mg/dL; Potassium 4.2 mmol/L (3.5-5.1); Protein, Total 7.6 g/dL (6.4-8.2); Sodium Level 139 mmol/L (136-145); T4 Free Direct 0.81 ng/dL (0.76-1.46); Thyroid Stim Hormone (TSH) 0.103 uIU/mL (0.358-3.740); Triglycerides 102 mg/dL; Very Low Density Lipoprotein 20 mg/dL (5-40)
[2024-06-21 12:54] LABS: Vitamin D,25 Hydroxy 51.1 ng/mL
== END | disposition home or self-care (01) ==
LOC: BFHLAB 09:58
PROVIDERS: PCP Family Medicine; Visit Provider Family Medicine
DX: E03.9 Hypothyroidism, unspecified (principal); E78.5 Hyperlipidemia, unspecified; E55.9 Vitamin D deficiency, unspecified; D72.820 Lymphocytosis (symptomatic); R05.3 Chronic cough; R79.9 Abnormal finding of blood chemistry, unspecified
CPT/HCPCS: 36415; 80053; 80061; 82306; 84439; 84443; 85025

== ENCOUNTER 2024-07-14 09:16 | Outpatient (CLI) | payer MEDICARE, SELFPAY ==
--- NOTE | 2024-07-14 09:18 | BI_ITS ---
PROCEDURE: SCRN MAMM (CAD)W/EARL BILAT REASON FOR EXAM: F, Age 79 y/o, presents for annual screening mammogram. Family history of breast cancer in her daughter at age 52. TECHNIQUE: Bilateral screening digital breast tomosynthesis with 2D and 3D images. Computer aided detection. COMPARISON: 05/15/2023 FINDINGS: There are scattered areas of fibroglandular density. No suspicious masses, areas of developing architectural distortion, or suspicious calcifications. BI/SCRN MAMM (CAD)W/EARL BILAT IMPRESSION: There is no mammographic evidence of malignancy in either breast. BI-RADS 1: NEGATIVE. RECOMMEND ANNUAL MAMMOGRAPHIC SCREENING. Follow-up code: Routine Follow-up The patient will be notified of the results by letter. Reading Location: [id number]
--- NOTE | 2024-07-14 09:18 | BD_ITS ---
PROCEDURE: DEXA BONE DENSITY STUDY REASON FOR EXAM: 79-year-old female. Osteoporosis screening. TECHNIQUE: DEXA scan of the lumbar spine and both hips. COMPARISON: None available FINDINGS: T-SCORES Lumbar spine: T-score -0.9. (Bone mineral density 0.952 g per cm2.) Right forearm: T-score -3.6. (Bone mineral density 0.479 g per cm2.) FRAX* Results: Was not performed as the hips were not scanned. *FRAX is a trademark of the [employer]'s [place] [employer] Metabolic Bone Disease, World Health Organization (WHO) Collaborating [place]. 1-The 10-year probability of fracture may be lower than reported if the patient has received treatment. 2-Major Osteoporotic Fracture: Clinical Spine, Forearm, Hip or Shoulder. The T-scores are also available for review on the [facility] PACS or by accessing the [facility] electronic medical record. BD/Dexa Bone Density Study IMPRESSION: Osteoporosis. Reading Location: [facility]
== END 2024-07-14 23:59 | disposition home or self-care (01) ==
LOC: OPBD 09:16
PROVIDERS: PCP Family Medicine; Referring Provider Family Medicine; Visit Provider Family Medicine
DX: Z12.31 Encounter for screening mammogram for malignant neoplasm of breast (principal); M81.0 Age-related osteoporosis without current pathological fracture
CPT/HCPCS: 77063; 77067; 77080; 77081

== ENCOUNTER → 2024-07-27 | Outpatient (CLI) | payer MEDICARE, SELFPAY ==
[2024-07-27 13:11] LABS: Thyroid Stim Hormone (TSH) 0.343 uIU/mL (0.358-3.740)
== END | disposition home or self-care (01) ==
LOC: BFHLAB 10:20
PROVIDERS: PCP Family Medicine; Visit Provider Family Medicine
DX: E03.9 Hypothyroidism, unspecified (principal)
CPT/HCPCS: 36415; 84443

== ENCOUNTER → 2025-06-02 | Outpatient (CLI) | payer MEDICARE, SELFPAY ==
--- NOTE | 2025-06-02 12:25 | RAD_ITS ---
PROCEDURE: CHEST PA AND LATERAL 06/02/2025 REASON FOR EXAM: INTERMITTENT COUGH TECHNIQUE: Procedure Code: RADCXR Modality: DX Procedure: CHEST PA AND LATERAL COMPARISON: None FINDINGS: Hardware: None Heart: The heart size is normal. Mediastinum: The mediastinal contour is unremarkable. Lungs: Increased peribronchial thickening with markings mostly in the bilateral lung bases. No pneumothorax or pleural effusion. Bones: The bones are unremarkable. RAD/Chest PA and Lateral IMPRESSION: Findings may be seen in acute on chronic bronchitis. No large consolidation. Reading Location: [facility]
[2025-06-02 12:37] LABS: Hematocrit 46.4 % (37-47); Hemoglobin 14.9 g/dL (12.0-15.0); Immature Granulocytes Count 0.030 X10^3/uL (0.0-0.0); Mean Corp Hgb Conc 32.1 g/dL (32-36); Mean Corpuscular Volume 94.7 fL (81-99); Mean Platelet Vol. 9.5 fl (6.2-12.0); NRBC Flagged by Analyzer 0 % (0-5); Platelet Count 229 K/mm3 (150-450); RBC Distribution Width CV 13.0 % (11.6-14.6); RBC Distribution Width SD 45.2 fl (35.1-43.9); Red Blood Count 4.90 M/mm3 (4.2-5.4); White Blood Count 8.7 K/mm3 (4.4-11.0)
[2025-06-02 14:52] LABS: AST(SGOT) 23 U/L (<=31); Alanine Aminotransfer ALT/SGPT 13 U/L (<=34); Albumin, Serum 4.0 g/dL (3.4-4.8); Alkaline Phosphatase 89 U/L (35-104); Anion Gap 9 (7-18); BUN 18 mg/dL (4-19); BUN/Creat Ratio 25.6 RATIO (10-20); Calcium,Total 9.2 mg/dL (7.6-11.0); Carbon Dioxide 26.1 mmol/L (20.0-29.0); Chloride 105 mmol/L (96-106); Free T3 4.3 pg/mL (2.18-3.98); Globulin 3.1 g/dL (2.2-4.2); Glucose 92 mg/dL (70-99); Potassium 4.5 mmol/L (3.5-5.1)
[2025-06-02 15:40] LABS: CRP < 3.00 mg/L (0.0-3.0)
== END | disposition home or self-care (01) ==
LOC: LAB 12:17
PROVIDERS: PCP Family Medicine; Referring Provider Family Medicine; Visit Provider Family Medicine
DX: R05.9 Cough, unspecified (principal); R42 Dizziness and giddiness; R00.1 Bradycardia, unspecified; R53.83 Other fatigue; E03.9 Hypothyroidism, unspecified; I95.9 Hypotension, unspecified
CPT/HCPCS: 36415; 71046; 80053; 84439; 84443; 84481; 85025; 85652; 86140